=== PATIENT | female | born 1955 | race Caucasian/White ===

== ENCOUNTER → 2019-01-04 | Outpatient (CLI) | payer BC, SELFPAY ==
[2019-01-07 13:57] LABS: HPV APTIMA, High Risk Negative (Negative)
== END | disposition home or self-care (01) ==
PROVIDERS: Family Provider Family Medicine; PCP Family Medicine; Referring Provider Obstetrics & Gynecology; Visit Provider Obstetrics & Gynecology
DX: Z12.4 Encounter for screening for malignant neoplasm of cervix (principal)
CPT/HCPCS: 87624; 88175; G0145

== ENCOUNTER → 2019-01-14 | Outpatient (CLI) | payer BC, SELFPAY ==
--- NOTE | 2019-01-14 08:15 | BI_ITS ---
MAMMOGRAPHY - BILATERAL SCREENING REASON FOR EXAM: Female, 63 years old. Routine annual screening examination. PERTINENT HISTORY: Aunt with breast cancer. TECHNIQUE: Digital bilateral breast tyler (3D mammographic acquisition) in the CC and MLO projections. 2-D mediolateral oblique (MLO) and craniocaudad (CC) views of both breasts were obtained. CAD: Full Field Digital Mammography with Computer Added Detection was performed. COMPARISON: Comparison is made with prior examination dated August 19, 2016. FINDINGS: Breast Composition: There are scattered areas of fibroglandular density. There are no dominant masses or suspicious calcifications. No other significant abnormalities are identified. There has been no significant change since the prior study. BI/SCREENING MAMM (CAD), BILAT IMPRESSION: Stable bilateral screening mammogram. Yearly follow-up mammogram recommended. (A) ASSESSMENT CATEGORY: BIRADS Category 1: Negative. A letter regarding these results will be sent to the patient by the facility within 30 days. Approximately 10% of breast cancers are not detected by mammography. A normal mammogram should not delay biopsy of a clinically suspicious abnormality. [id number] Electronically Signed: Marlon Kent, at 10:04 EDT , Service support ,
[2019-01-14 08:53] LABS: Cholesterol 259 mg/dL (200); Glucose 89 mg/dL (74-106); High Density Lipoprotein 90 mg/dL; Triglycerides 102 mg/dL; Very Low Density Lipoprotein 20 mg/dL (5-40)
[2019-01-14 09:19] LABS: Vitamin D,25 Hydroxy 15.8 ng/mL (29.95-100.01)
== END | disposition home or self-care (01) ==
PROVIDERS: Referring Provider Obstetrics & Gynecology; Visit Provider Obstetrics & Gynecology
DX: Z12.31 Encounter for screening mammogram for malignant neoplasm of breast (principal); Z13.1 Encounter for screening for diabetes mellitus; Z13.220 Encounter for screening for lipoid disorders; Z13.21 Encounter for screening for nutritional disorder
CPT/HCPCS: 36415; 77063; 77067; 80061; 82306; 82947

== ENCOUNTER → 2020-01-17 08:14 | Outpatient (CLI) | payer MEDICARE, OTHER, SELFPAY ==
--- NOTE | 2020-01-17 08:15 | BI_ITS ---
MAMMOGRAPHY - BILATERAL SCREENING REASON FOR EXAM: Female, 64 years old. Routine annual screening examination. PERTINENT HISTORY: Aunt with breast cancer. TECHNIQUE: Digital bilateral breast beto (3D mammographic acquisition) in the CC and MLO projections. 2-D mediolateral oblique (MLO) and craniocaudad (CC) views of both breasts were obtained. CAD: Full Field Digital Mammography with Computer Added Detection was performed. COMPARISON: Comparison is made with prior examination dated January 14, 2019. FINDINGS: Breast Composition: There are scattered areas of fibroglandular density. Questionable area of the architectural distortion seen on the MLO view of the right breast in the superior aspect. The patient will be recalled for additional views of the right breast including a 90 degree and compression spot view. No other significant abnormalities are identified. BI/SCREEN MAMM (CAD) W/BETO BILAT IMPRESSION: Questionable area of architectural distortion in the right breast as described. The patient will be recalled for additional views. Recall Side: Right Breast ASSESSMENT CATEGORY: BIRADS Category 0: Incomplete. Need additional imaging evaluation. A letter regarding these results will be sent to the patient by the facility within 30 days. Approximately 10% of breast cancers are not detected by mammography. A normal mammogram should not delay biopsy of a clinically suspicious abnormality. [id number] Electronically Signed: Marlon Kent, at 8:53 EDT , Service support ,
[2020-01-17 10:35] LABS: Vitamin D,25 Hydroxy 25.4 ng/mL
[2020-01-17 10:46] LABS: Cholesterol 281 mg/dL (200); High Density Lipoprotein 94 mg/dL; Triglycerides 120 mg/dL; Very Low Density Lipoprotein 24 mg/dL (5-40)
== END ==
PROVIDERS: Nurse Practitioner Women's Health; Referring Provider Obstetrics & Gynecology; Visit Provider Obstetrics & Gynecology
DX: R79.89 Other specified abnormal findings of blood chemistry (principal); M85.80 Other specified disorders of bone density and structure, unspecified site; Z12.31 Encounter for screening mammogram for malignant neoplasm of breast
CPT/HCPCS: 36415; 77063; 77067; 80061; 82306

== ENCOUNTER → 2020-01-26 09:01 | Outpatient (CLI) | payer MEDICARE, OTHER, SELFPAY ==
--- NOTE | 2020-01-26 09:03 | US_ITS ---
STUDY: ULTRASOUND BREAST - RIGHT REASON FOR EXAM: Female, 64 years old. Abnormal screening mammogram. TECHNIQUE: Axial and longitudinal images of the RIGHT breast were performed with a high resolution ultrasound transducer. # OF IMAGES: 50 COMPARISON: Comparison is made with prior mammogram dated January 17, 2020 and January 26, 2020. FINDINGS: RIGHT Breast: The upper half of the right breast was examined by ultrasound. There is homogeneous fibroglandular tissue. No solid or cystic mass lesion is seen. US/Breast Limited Unilateral IMPRESSION: No sonographic abnormality is seen. Routine annual mammographic follow-up is recommended. ASSESSMENT CATEGORY: BIRADS Category 1: Negative. A letter regarding these results will be sent to the patient by the facility within 30 days. Electronically Signed: Marlon Kent, at 13:08 EDT , Service support ,
--- NOTE | 2020-01-26 09:03 | BI_ITS ---
MAMMOGRAPHY - UNILATERAL DIAGNOSTIC: RIGHT BREAST REASON FOR EXAM: Female, 64 years old. Abnormal screening mammogram. PERTINENT HISTORY: Aunt with breast cancer. TECHNIQUE: Digital unilateral breast tyler (3D mammographic acquisition) in the CC and MLO projections. 2-D mediolateral oblique (MLO) and craniocaudad (CC) views of both breasts were obtained. CAD: Full Field Digital Mammography with Computer Added Detection was performed. COMPARISON: Comparison is made with prior mammogram dated January 17, 2020. FINDINGS: Breast Composition: There are scattered areas of fibroglandular density. There are no dominant masses or suspicious calcifications. The questionable area of architectural distortion on the MLO view is not seen at this time. This likely represents superimposition of tissue. No other significant abnormalities are identified. BI/DIAG MAMM W/CAD, UNILAT IMPRESSION: Stable unilateral diagnostic mammogram. One year follow-up mammogram recommended. (A) ASSESSMENT CATEGORY: BIRADS Category 2: Benign. A letter regarding these results will be sent to the patient by the facility within 30 days. Approximately 10% of breast cancers are not detected by mammography. A normal mammogram should not delay biopsy of a clinically suspicious abnormality. Electronically Signed: Marlon Kent, at 12:10 EDT , Service support ,
--- NOTE | 2020-01-26 09:06 | BD_ITS ---
STUDY: DUAL ENERGY X-RAY ABSORPTIOMETRY / DXA REASON FOR EXAM: Female, 64 years old. Age of analilia- 49. Pat is 118.4# and 61.5 and quot; a loss of 1 and quot; per patient. Does not exercise. TECHNIQUE: Bone Mineral Density (BMD) measurements of lumbar spine and bilateral hips were obtained. COMPARISON: None. FINDINGS: Lumbar Spine (L1-L4): g/cm2 (0.924) / T-score (-2.1) / Z-score (-0.5) Findings are suggestive of osteopenia with a high fracture risk. Left Femur Total: g/cm2 (0.751) / T-score (-2.0) / Z-score (-0.8) Left Femoral Neck: g/cm2 (0.687) / T-score (-2.5) / Z-score (-1.0) Right Femur Total: g/cm2 (0.751) / T-score (-2.0) / Z-score (-0.8) Right Femoral Neck: g/cm2 (0.687) / T-score (-2.5) / Z-score (-1.0) BD/Dexa Bone Density Study IMPRESSION: The patient is considered osteoporotic as outlined below according to World Riki Organization (WHO) criteria with a high fracture risk. Reference Information: The T-score is the number of standard deviations above or below the standard which is normal for young adults at their peak bone mineral density. The World Health Organization (WHO) interprets the T-scores as follows: Above -1 Normal bone density Between -1 and -2.5 Osteopenia Equal to / or below -2.5 Osteoporosis As a practical clinical guideline, osteopenia may be graded as follows: Mild -1 through -1.5 Moderate -1.6 through -2.0 Severe -2.1 through -2.4 The Z-score is the number of standard deviations above or below age-matched controls. A Z-score of less than -1.5 would be considered abnormal. References: 1. NIH Osteoporosis and Related Bone Diseases http://www.osteo.org 2. International Society for Clinical Densitometry http://www.iscd.org 3. National Osteoporosis Foundation http://www.nof.org Electronically Signed: Marlon Kent, at 13:02 EDT , Service support ,
== END ==
PROVIDERS: Referring Provider Nurse Practitioner Women's Health; Visit Provider Nurse Practitioner Women's Health
DX: R92.8 Other abnormal and inconclusive findings on diagnostic imaging of breast (principal); M81.0 Age-related osteoporosis without current pathological fracture
CPT/HCPCS: 76642; 77065; 77080

== ENCOUNTER → 2020-02-08 10:20 | Outpatient (CLI) | payer MEDICARE, OTHER, SELFPAY ==
[2020-02-08 12:30] LABS: Absolute Lymphocyte Count 2.44 X10^3/uL (0.83-4.51); Absolute Neutrophil Count 2.3 X10^3/uL (2.0-7.7); Basophil# 0.06 X10^3/uL; Basophil% 1.1 % (0-1); Eosinophils% 1.9 % (0-5); Hemoglobin 12.8 g/dL (12.0-15.0); Lymphocyte # 2.44 X10^3/ul (4.0); Mean Corpuscular Hgb 29.4 pg (27.0-32.0); Mean Corpuscular Volume 91.7 fL (81-99); Mean Platelet Vol. 11.2 fl (6.2-12.0); Monocyte% 7.5 % (0-10); NRBC Flagged by Analyzer 0 % (0-5); Neutrophil % 43.3 % (47-70); Platelet Count 289 K/mm3 (150-450); RBC Distribution Width CV 12.8 % (11.6-14.6); RBC Distribution Width SD 43.1 fl (35.1-43.9); Red Blood Count 4.36 M/mm3 (4.2-5.4); White Blood Count 5.3 K/mm3 (4.4-11.0)
[2020-02-08 12:45] LABS: ALB/GLOB Ratio 0.9 RATIO (0.9-2.4); AST(SGOT) 25 U/L (15-37); Alanine Aminotransfer ALT/SGPT 19 U/L (13-56); Albumin, Serum 3.8 g/dL (3.2-5.0); Alkaline Phosphatase 70 U/L (45-117); Anion Gap 4 (5-15); BUN 10 mg/dL (7-18); Calcium,Total 9.6 mg/dL (8.5-10.1); Chloride 110 mmol/L (98-107); Creatinine, Serum 0.83 mg/dL (0.55-1.02); EST Glomerular Filtration Rate 73 mL/min (>60); Est Glom Filt Rate - Afr Amer 88 mL/min (>60); Globulin 4.1 g/dL (2.2-4.2); Glucose 89 mg/dL (74-106); Potassium 4.4 mmol/L (3.5-5.1); Protein, Total 7.9 g/dL (6.4-8.2); Sodium Level 141 mmol/L (136-145)
== END ==
PROVIDERS: Referring Provider Internal Medicine; Visit Provider Internal Medicine
DX: E78.5 Hyperlipidemia, unspecified (principal); M81.0 Age-related osteoporosis without current pathological fracture
CPT/HCPCS: 36415; 80053; 85025

== ENCOUNTER 2025-03-13 10:30 | Outpatient (RCR) | payer MEDICARE, OTHER, SELFPAY ==
--- NOTE | 2025-02-20 12:03 | HP.PTEVAL ---
Patient's Visit Information Visit Information Visit Information: SHERWIN WOLF is a 69 year old F referred to Physical Therapy by Jarad Haile MD with a diagnosis of R THAD 02/01/25. Date of Evaluation: 02/20/25 Physical Therapist: Corey Perez, PT, ATC Visit Plan Frequency: 2x /Week Duration: 4-6 Weeks Plan: R LE strengthening, core strengthening, balance and proprio, stair negotiation, gait training, nustep, and HEP Subjective Subjective: DOS 02/01/25. Pt reports she had a R THAD performed at that time. Pt notes she had a posterior approach. Pt notes her surgeon wanted her to do 3 weeks of home ex's, and then come here. Pt reports she is doing really well at this time. Pt notes her pain is very minimal until she ambulates for a long time. 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 Pt denies tingling or numbness in R LE. Pt notes she has had to sleep in a recliner at this time secondary to pain. Pt notes she lives in a two story house and has to negotiate the stairs to her bedroom and to shower. Pt reports she is limited with all of her ADL's adn IADL's at this time secondary to pain. Pt usually mows her lawn and cleans her house which she is unable to do at this time. Pt reports her R hip pain is 1/10 while sitting here at rest, and elevates to 4/10. Pain R hip: Pain Intensity (Out of 10): 1 Pain Intensity Range: 4 Objective Objective: Neuro: B LE sensation is WNL to light touch. B patellar reflex= 2/3 TU seconds MMT: L hip flex= 75, ext= 0 degrees; R hip flex= 75, ext= 0 degrees ROM: L hip flex= 17, ext= 20 #F; R hip flex= 14, ext= 16 #F Stairs: Pt negotiates stairs one step at a time Six minute walk test 1020 feet with WW Balance/Special Test Scores WOMAC Total Score: 41 WOMAC Percentatge: 57.3000 Goals Goal 1:: Decrease R hip pain x 50% to aid with ambulation Goal Time Frame: 4-6 Weeks Goal 2:: Increase R hip flex and ext strength x 3-5 #F to aid with stair negotiation Goal Time Frame: 4-6 Weeks Goal 3:: Pt will be able to negotiate 10 stairs reciprocally with one hand rail to aid with I at home Goal Time Frame: 4-6 Weeks Goal 4:: I with HEP Goal Time Frame: 4-6 Weeks Rehabilitation Potential Physical Therapy Diagnosis: Pt has R hip pain and weakness secondary to R THAD Rehabilitation Potential: Good Anticipated Interventions Patient/Client Instruction: Educate patient on: Condition and Plan of Care For the Purpose of:: To improve self management Therapeutic Exercise to Include: Strength training, Endurance training, Balance training, Gait and locomotor training and Dynamic Lumbar Stabilization For the Purpose of:: To decrease pain, To improve muscle performance and motor function and To increase tolerance to activity/condition/position Cryotherapy (ice pack, ice massage): Yes For the Purpose of:: To decrease pain Text: Thank you for the opportunity to evaluate your patient. For Medicare and Medicare HMO plans, please review the plan of care and approve it. It will need to be FAXED BACK to us at [phone] for Medicare purposes. For Medicare only, by signing this I certify the plan of care. Please let me know if there are questions or concerns regarding this plan of care. Physician Signature: Date:
--- NOTE | 2025-03-13 11:02 | HP.PTREVAL ---
Re-Evaluation Intro: Jarad Haile MD, It has been my pleasure to treat SHERWIN WOLF over the last 8 visits for R THAD 02/01/25. Please see the progress note below for an update on the physical therapy plan of care! Subjective Subjective: I am getting better. I am sore today because of how I slept on it last night. Objective Objective/Function: R hip pain is 2/10 R hip MMT: flex= 22, abd= 30, add= 41, ext= 41 #F R hip ROM: flex= 92, ext= 0 degrees Pt is able to negotiate 10 stairs reciprocally with one handrail Plan Plan Plan: Continue/discharge pending DrDick visit tomorrow. Balance/Gait/Functional tests Balance/Special Test Scores WOMAC Total Score: 41 WOMAC Percentage: 57.3000 Goals Goals Goal 1:: Decrease R hip pain x 50% to aid with ambulation Goal Time Frame: 4-6 Weeks Goal 2:: Increase R hip flex and ext strength x 3-5 #F to aid with stair negotiation Goal Time Frame: 4-6 Weeks Goal 3:: Pt will be able to negotiate 10 stairs reciprocally with one hand rail to aid with I at home Goal Time Frame: 4-6 Weeks Goal 4:: I with HEP Goal Time Frame: 4-6 Weeks Anticipated Interventions Anticipated Interventions Patient/Client Instruction: Educate patient on: Condition and Plan of Care For the Purpose of:: To improve self management Therapeutic Exercise to Include: Strength training, Endurance training, Balance training, Gait and locomotor training and Dynamic Lumbar Stabilization For the Purpose of:: To decrease pain, To improve muscle performance and motor function and To increase tolerance to activity/condition/position Cryotherapy (ice pack, ice massage): Yes For the Purpose of:: To decrease pain Re-Evaluation Ending Re-evaluation ending: Please do not hesitate to contact me at [phone] by phone or if you have questions or concerns regarding this new plan of care! Sincerely, Corey Perez, PT, ATC
--- NOTE | 2025-03-13 11:02 | HP.PT.NRP(3) ---
Patient Information Patient Information: SHERWIN WOLF was seen in my office for initial evaluation on . The following Plan of Care was established for this patient: Last Seen Last Seen: This patient was last seen in our office . Pertinent comments regarding their Physical therapy will appear below: At this point I will be discontinuing this patient from physical therapy. I would be happy to see this patient again in the future if found appropriate by the physician. Thank you! Corey Perez, PT, ATC
== END 2025-03-13 14:34 | disposition home or self-care (01) ==
LOC: PT 10:30
PROVIDERS: Referring Provider Orthopaedic Surgery; Visit Provider Orthopaedic Surgery
DX: Z96.641 Presence of right artificial hip joint (principal)
CPT/HCPCS: 97110; 97161; 97530